=== PATIENT | male | born 1985 | race Caucasian/White ===

== ENCOUNTER 2017-07-08 14:08 | Emergency (ER) | payer OTHER ==
--- NOTE | 2017-07-08 14:16 | ED ---
Male Urogenital HPI - General Chief complaint: Urogenital Stated complaint: abdominal pain/digestion problems Time Seen by Provider: 07/08/17 14:15 Source: patient Mode of arrival: ambulatory Limitations: no limitations - History of Present Illness Initial comments: Patient presents with abdominal pain that occurs only after eating, after eating any type of food, for the past 3 weeks. Patient states it feels like a tightness and acid reflux. Patient states "I notes acid reflux it goes up into the back of my throat". Patient denies any past medical history, any history of stomach ulcers her acid reflux, denies history of abdominal surgeries, denies history of intra-abdominal disease. Patient has not tried any treatments at home. Patient states yesterday he experienced a white discharge in his urine once, however today his urination was normal. Patient does state he had bilateral flank pain last night, which has since resolved. Patient states he is sexually active, however has not had sex in the past 2 months. Patient denies any penile discharge at this time. Patient states last bowel movement was this morning, it was normal. Patient denies nausea or vomiting, fevers, chills. Patient denies any lesions or rashes in his genital area. - Related Data Home Medications Medication Instructions Recorded Confirmed Calcium Carbonate [Tums Ultra 1,177 mg PO Q4H PRN 07/08/17 07/08/17 Strength] Allergies Allergy/AdvReac Type Severity Reaction Status Date / Time No Known Allergies Allergy Verified 07/08/17 14:18 Review of Systems ROS Statement: Those systems with pertinent positive or pertinent negative responses have been documented in the HPI. ROS Other: All systems not noted in ROS Statement are negative. Constitutional: Denies: fever, chills, weakness Eyes: Denies: vision change ENT: Denies: throat pain, congestion Respiratory: Denies: cough Cardiovascular: Denies: chest pain Endocrine: Reports: polyuria. Denies: fatigue Gastrointestinal: Reports: abdominal pain. Denies: nausea, vomiting, diarrhea, constipation, hematemesis, melena, hematochezia Genitourinary: Reports: frequency. Denies: dysuria, hematuria, testicular pain , testicular mass Musculoskeletal: Reports: other (bilat flank pain last night). Denies: joint swelling, arthralgia, myalgia Skin: Denies: rash, change in color Neurological: Denies: headache Past Medical History Past Medical History: No Reported History History of Any Multi-Drug Resistant Organisms: None Reported Past Surgical History: No Surgical Hx Reported Past Psychological History: No Psychological Hx Reported Smoking Status: Current every day smoker Past Alcohol Use History: Occasional Past Drug Use History: Marijuana General Exam - General Exam Comments Initial Comments: Sitting up on side of bed. No acute distress. Well-appearing. Conversing normally. Limitations: no limitations General appearance: alert, in no apparent distress Head exam: Present: atraumatic, normocephalic Eye exam: Present: normal appearance, PERRL, EOMI. Absent: scleral icterus, conjunctival injection ENT exam: Present: normal oropharynx, mucous membranes moist Neck exam: Present: normal inspection Respiratory exam: Present: normal lung sounds bilaterally. Absent: respiratory distress, wheezes, rales, rhonchi, stridor Cardiovascular Exam: Present: regular rate, normal rhythm GI/Abdominal exam: Present: soft, normal bowel sounds. Absent: distended, tenderness, guarding, rebound, rigid, hernia exam: Present: normal inspection, circumcision. Absent: testicular tenderness, urethral discharge, scrotal swelling External exam: Present: normal external exam. Absent: erythema, swelling, lesions, lacerations, ecchymosis Extremities exam: Present: normal inspection Back exam: Present: CVA tenderness (R), CVA tenderness (L) (Mild CVA tenderness bilaterally) Neurological exam: Present: alert, oriented X3 Psychiatric exam: Present: normal affect, normal mood Skin exam: Present: warm, dry, intact, normal color. Absent: rash, cyanosis, diaphoretic, erythema Course Vital Signs 07/08/17 07/08/17 07/08/17 14:10 16:35 17:00 Temperature 97.8 F 98.1 F 97.0 F L Pulse Rate 103 H 59 L 89 Respiratory 20 19 20 Rate Blood Pressure 131/83 118/59 139/81 O2 Sat by Pulse 100 100 96 Oximetry Medical Decision Making - Medical Decision Making Zofran, Pepcid, GI cocktail ordered Lab work shows elevation of alk phos and ALT. UA shows hematuria. Will obtain ultrasound of kidneys and liver given lab findings. Patient reevaluated, updated with elevated LFTs, hematuria, need for US of GB, liver, kidneys. Patient is in room drinking wheeler soda, patient instructed not to drink wheeler soda as this could irritate any stomach gastritis or ulcers or other etiologies of his pain. Patient also informed that he needs to be nothing by mouth while in ED incase of need for procedure. Notified by RN the pt eloped while a/w US. Patient made no indication to physician staff about his intent to leave prior to doing so. Patient was informed of his abnormal lab results and need for further testing earlier in his visit. - Lab Data Result diagrams: 07/08/17 14:45 07/08/17 14:45 Lab Results 07/08/17 07/08/17 07/08/17 Range/Units 14:45 14:45 14:45 WBC 8.9 (3.8-10.6) k/uL RBC 5.30 (4.30-5.90) m/uL Hgb 15.4 (13.0-17.5) gm/dL Hct 44.1 (39.0-53.0) % MCV 83.3 (80.0-100.0) fL MCH 29.0 (25.0-35.0) pg MCHC 34.9 (31.0-37.0) g/dL RDW 12.9 (11.5-15.5) % Plt Count 239 (150-450) k/uL Neutrophils % 80 % Lymphocytes % 14 % Monocytes % 3 % Eosinophils % 1 % Basophils % 0 % Neutrophils # 7.2 (1.3-7.7) k/uL Lymphocytes # 1.3 (1.0-4.8) k/uL Monocytes # 0.3 (0-1.0) k/uL Eosinophils # 0.1 (0-0.7) k/uL Basophils # 0.0 (0-0.2) k/uL Sodium 145 (137-145) mmol/L Potassium 4.6 (3.5-5.1) mmol/L Chloride 106 (98-107) mmol/L Carbon Dioxide 25 (22-30) mmol/L Anion Gap 14 mmol/L BUN 13 (9-20) mg/dL Creatinine 0.85 (0.66-1.25) mg/dL Est GFR (CKD-EPI)AfAm >90 (>60 ml/min/1.73 sqM) Est GFR (CKD-EPI)NonAf >90 (>60 ml/min/1.73 sqM) Glucose 151 H (74-99) mg/dL Calcium 10.1 (8.4-10.2) mg/dL Total Bilirubin 0.7 (0.2-1.3) mg/dL Conjugated Bilirubin 0.0 (0.0-0.3) mg/dL Unconjugated Bilirubin 0.3 (0.0-1.1) mg/dL Delta Bilirubin 0.4 H (0.0-0.2) mg/dL AST 55 (17-59) U/L ALT 242 H (21-72) U/L Alkaline Phosphatase 182 H (38-126) U/L Total Protein 8.3 H (6.3-8.2) g/dL Albumin 4.5 (3.5-5.0) g/dL Lipase 101 (23-300) U/L Urine Color Yellow Urine Appearance Clear (Clear) Urine pH 8.0 (5.0-8.0) Ur Specific [place] 1.018 (1.001-1.035) Urine Protein Trace H (Negative) Urine Glucose (UA) Negative (Negative) Urine Ketones Negative (Negative) Urine Blood Moderate H (Negative) Urine Nitrite Negative (Negative) Urine Bilirubin Negative (Negative) Urine Urobilinogen 6.0 (<2.0) mg/dL Ur Leukocyte Esterase Negative (Negative) Urine RBC >182 H (0-5) /hpf Urine WBC 2 (0-5) /hpf Urine Mucus Rare H (None) /hpf Disposition Clinical Impression: Elevated LFTs, Hematuria, Abdominal pain Disposition: Left Against Medical Advice Condition: Good Referrals: Herminio Nelson MD [Primary Care Provider] - 1-2 days
[2017-07-08] MEDS ORDERED: MAG HYDROX/AL HYDROX/SIMETH 30 ML, HYOSCYAMINE ELIXIR 10 ML, CIMETIDINE HCL 300 MG, LID... PO STA ×4 (14:33)
[2017-07-08] MEDS ORDERED: FAMOTIDINE 20 MG/2 ML VIAL IV STA (14:33)
[2017-07-08] MEDS ORDERED: ONDANSETRON 4 MG/2 ML VIAL IVP STA (14:33)
[2017-07-08] MEDS ORDERED: SODIUM CHLORIDE 0.9% 1,000 ML IV STA (14:33)
[2017-07-08 15:02] LABS: Basophils % (A) 0 %; Eosinophils # (A) 0.1 k/uL (0-0.7); Eosinophils % (A) 1 %; HCT 44.1 % (39.0-53.0); HGB 15.4 gm/dL (13.0-17.5); Lymphocytes # (A) 1.3 k/uL (1.0-4.8); Lymphocytes % (A) 14 %; MCHC 34.9 g/dL (31.0-37.0); MCV 83.3 fL (80.0-100.0); Mean Platelet Volume 7.7; Monocytes # (A) 0.3 k/uL (0-1.0); Monocytes % (A) 3 %; Neutrophils # (A) 7.2 k/uL (1.3-7.7); Neutrophils % (A) 80 %; Platelet Count 239 k/uL (150-450); RDW 12.9 % (11.5-15.5); WBC 8.9 k/uL (3.8-10.6)
[2017-07-08 15:12] LABS: ALT 242 U/L (21-72); AST 55 U/L (17-59); Albumin 4.5 g/dL (3.5-5.0); Alkaline Phosphatase 182 U/L (38-126); Anion Gap 14 mmol/L; Bilirubin, Delta 0.4 mg/dL (0.0-0.2); Bilirubin,Unconjugated 0.3 mg/dL (0.0-1.1); Blood Urea Nitrogen 13 mg/dL (9-20); Calcium 10.1 mg/dL (8.4-10.2); Carbon Dioxide 25 mmol/L (22-30); Chloride 106 mmol/L (98-107); Glucose 151 mg/dL (74-99); Lipase 101 U/L (23-300); Potassium 4.6 mmol/L (3.5-5.1); Sodium 145 mmol/L (137-145); Total Bilirubin 0.7 mg/dL (0.2-1.3); Total Protein 8.3 g/dL (6.3-8.2)
[2017-07-08 15:15] LABS: Appearance,Urine Clear (Clear); Bilirubin,Urine Negative (Negative); Blood,Urine Moderate (Negative); Color,Urine Yellow; Glucose,Urine (UA) Negative (Negative); Ketones,Urine Negative (Negative); Leukocyte Esterase,Urine Negative (Negative); Mucus,Urine Rare /hpf; Nitrite,Urine Negative (Negative); Protein,Urine Trace (Negative); RBC,Urine >182 /hpf (0-5); Specific Gravity,Urine 1.018 (1.001-1.035); WBC,Urine 2 /hpf (0-5)
[2017-07-08 18:17] VITALS: BP 139/81; PULSE 89; RESP 20; TEMP 97
[2017-07-10 16:03] LABS: C. trachomatis,PCR Negative (Neg,Equiv); Chlamydia trachomatis Source Urine; N. gonorrhoeae,PCR Negative (Neg,Equiv); Neisseria Source Urine
== END 2017-07-08 18:19 | disposition left against medical advice (07) ==
LOC: EC 14:08
DX: R94.5 Abnormal results of liver function studies (principal); R10.9 Unspecified abdominal pain; R31.9 Hematuria, unspecified; F17.200 Nicotine dependence, unspecified, uncomplicated
CPT/HCPCS: 99283; 96374; 96375; 36415; 80048; 80076; 83690; 85025; 81001; 87491; 87591; 87086; J2405

== ENCOUNTER 2020-01-27 11:23 | Emergency (ER) | payer OTHER ==
[2020-01-27] MEDS ORDERED: predniSONE 50 MG TAB PO STA (11:57)
[2020-01-27] MEDS ORDERED: diphenhydrAMINE 50 MG CAP PO STA (11:58)
--- NOTE | 2020-01-27 11:58 | ED ---
Skin/Abscess/FB HPI - General Chief complaint: Skin/Abscess/Foreign Body Stated complaint: Rash Time Seen by Provider: 01/27/20 11:32 Source: patient Mode of arrival: ambulatory Limitations: no limitations - History of Present Illness Initial comments: Patient is a 34-year-old male presenting to the emergency department with a chief complaint of a rash. Patient states rash started yesterday initial in his forehead, has now spread to his neck and but a bit on his bilateral upper extremity is. States the rash is itchy but not painful. He denies any night sweats or chills. Denies taking medication to alleviate the symptoms. Denies any discharge from the region. States he is a IV drug user. Denies any neck stiffness, pain, chest pain or shortness of breath. Denies any discoloration of the nails or nail lesions on the hand. - Related Data Home Medications Medication Instructions Recorded Confirmed Calcium Carbonate [Tums Ultra 1,177 mg PO Q4H PRN 07/08/17 07/08/17 Strength] Previous Rx's Medication Instructions Recorded predniSONE 50 mg PO DAILY #5 tab 01/27/20 Allergies Allergy/AdvReac Type Severity Reaction Status Date / Time No Known Allergies Allergy Verified 01/27/20 11:28 Review of Systems ROS Statement: Those systems with pertinent positive or pertinent negative responses have been documented in the HPI. ROS Other: All systems not noted in ROS Statement are negative. Past Medical History Past Medical History: No Reported History History of Any Multi-Drug Resistant Organisms: None Reported Past Surgical History: No Surgical Hx Reported Past Psychological History: No Psychological Hx Reported Smoking Status: Current every day smoker Past Alcohol Use History: Occasional Past Drug Use History: Heroin, Marijuana General Exam Limitations: no limitations General appearance: alert, in no apparent distress Head exam: Present: atraumatic, normocephalic, normal inspection Eye exam: Present: normal appearance, PERRL, EOMI Pupils: Present: normal accommodation ENT exam: Present: normal exam, normal oropharynx, mucous membranes moist, TM's normal bilaterally, normal external ear exam Neck exam: Present: normal inspection, full ROM. Absent: tenderness, mening ismus, lymphadenopathy Respiratory exam: Present: normal lung sounds bilaterally. Absent: respiratory distress, wheezes, rales Cardiovascular Exam: Present: regular rate, normal rhythm, normal heart sounds. Absent: bradycardia, tachycardia, irregular rhythm, systolic murmur, diastolic murmur GI/Abdominal exam: Present: soft. Absent: distended, tenderness, guarding, rebound Extremities exam: Present: normal inspection, full ROM, normal capillary refill (No signs of splinter hemorrhages.), other (+2 ulnar and radial pulses bilateral.). Absent: tenderness Back exam: Present: normal inspection, full ROM. Absent: tenderness, CVA tenderness (R), CVA tenderness (L) Neurological exam: Present: alert, oriented X3, CN II-XII intact, normal gait Psychiatric exam: Present: normal affect, normal mood Skin exam: Present: warm, dry, intact, normal color, rash (Maculopapular rash on the neck, forehead and slight on bilateral upper or tremors.) Course Vital Signs 01/27/20 11:24 Temperature 98.3 F Pulse Rate 114 H Respiratory 16 Rate Blood Pressure 158/92 O2 Sat by Pulse 97 Oximetry Medical Decision Making - Medical Decision Making Patient is a 34-year-old male presenting to emergency Department with a chief complaint of a rash. This appears to be a maculopapular rash on the face, neck and bilateral upper extremities. His vitals are stable. He is afebrile. He is an IV drug user. There are not any splinter hemorrhages or other lesions on the hand. Patient started on Benadryl and prednisone. On reevaluation there appears to be improvement in the rash. I suspect this is a viral exanthem. He will be discharged with a course of steroids. Strict return parameters were thoroughly discussed the patient was understanding and agreeable. Case discussed with physician. Disposition Clinical Impression: Rash and nonspecific skin eruption Disposition: HOME SELF-CARE Condition: Stable Instructions (If sedation given, give patient instructions): Viral Exanthem (ED) Additional Instructions: Take prescribed medication as directed. Take Benadryl for the itching. Return to emergency department if symptoms worsen. Follow-up with primary care physician. Prescriptions: predniSONE 50 mg PO DAILY #5 tab Is patient prescribed a controlled substance at d/c from ED?: No Referrals: None,Stated [Primary Care Provider] - 1-2 days Time of Disposition: 12:42
[2020-01-27 12:51] VITALS: BP 150/84; PULSE 82; RESP 20; TEMP 98.1
== END 2020-01-27 12:52 | disposition home or self-care (01) ==
LOC: EC 11:23
DX: R21 Rash and other nonspecific skin eruption (principal); F17.200 Nicotine dependence, unspecified, uncomplicated
CPT/HCPCS: 99282; J7512

== ENCOUNTER 2021-10-25 08:39 | Emergency (ER) | payer OTHER ==
[2021-10-25 08:44] VITALS: BP 131/48; PULSE 92; RESP 18; TEMP 98.4
[2021-10-25] MEDS ORDERED: ONDANSETRON 4 MG/2 ML VIAL IVP STA (10:08)
[2021-10-25] MEDS ORDERED: KETOROLAC 15 MG/ML 1 ML VIAL IVP STA (10:08)
[2021-10-25] MEDS ORDERED: SODIUM CHLORIDE 0.9% 1,000 ML IV STA (10:08)
--- NOTE | 2021-10-25 10:43 | ED ---
Extremity Problem HPI - General Chief complaint: Extremity Injury, Lower Stated complaint: left foot pain, swelling Time Seen by Provider: 10/25/21 10:01 Source: patient, family, RN notes reviewed Mode of arrival: ambulatory Limitations: no limitations - History of Present Illness Initial comments: This is a 36-year-old male who presents to the emergency department with left foot pain and swelling. Patient states that 3 days ago he was helping set up for a picnic and the day after that he was on his feet a lot at work. He does not recall dropping anything on his foot or otherwise injuring himself, however he states that he can't be sure. He is a previous IVDU and states that he poked himself with a needle in the area of pain and redness 1-2 days before the symptoms began, however he did not inject himself with any substances. The pain and swelling occurred 2 days ago and has continued to progress. He has been elevating and icing the foot with no relief. This morning he noticed that the foot was very red. He is now unable to ambulate due to the pain. This morning he also became nauseous and started vomiting. Denies any fevers, chills, sore throat, cough, dyspnea, chest pain, palpitations, abdominal pain, diarrhea, back pain, or headaches. MD Complaint: extremity pain, extremity swelling Onset/Timin -: days(s) Location: left, lower extremity (foot) History of Same: No Consistency: constant Worsens with: weight bearing, walking Associated Symptoms: denies other symptoms - Related Data Home Medications Medication Instructions Recorded Confirmed Buprenorphine HCl/Naloxone HCl 1 film SL TID PRN 10/25/21 10/25/21 [Buprenorp-Nalox 8-2 mg Sl Film] Previous Rx's Medication Instructions Recorded Cephalexin [Keflex] 500 mg PO Q8HR 10 Days #30 cap 10/25/21 Diclofenac Sodium [Voltaren] 75 mg PO BID #20 tab 10/25/21 Ondansetron Odt [Zofran Odt] 4 mg PO Q8HR PRN #15 tab 10/25/21 Sulfamethox-Tmp 800-160Mg [Bactrim 1 each PO Q12HR 10 Days #20 tab 10/25/21 Ds] Allergies Allergy/AdvReac Type Severity Reaction Status Date / Time No Known Allergies Allergy Verified 10/25/21 10:58 Review of Systems ROS Statement: Those systems with pertinent positive or pertinent negative responses have been documented in the HPI. ROS Other: All systems not noted in ROS Statement are negative. Past Medical History Past Medical History: No Reported History History of Any Multi-Drug Resistant Organisms: None Reported Past Surgical History: No Surgical Hx Reported Past Psychological History: No Psychological Hx Reported Smoking Status: Former smoker Past Alcohol Use History: None Reported Past Drug Use History: None Reported General Exam Limitations: no limitations General appearance: alert, in no apparent distress Head exam: Present: atraumatic, normocephalic, normal inspection Respiratory exam: Present: normal lung sounds bilaterally. Absent: respiratory distress, wheezes, rales, rhonchi, stridor Cardiovascular Exam: Present: regular rate, normal rhythm, normal heart sounds. Absent: systolic murmur, diastolic murmur, rubs, gallop, clicks Extremities exam: Present: other (Swelling and erythema to the dorsal aspect of the left foot with increased heat and tenderness to palpation. No obvious abrasions or lacerations. 2+ dorsalis pedis and tibialis posterior pulses bilaterally. Capillary refill less than 1 second.) Neurological exam: Present: alert, oriented X3, CN II-XII intact Psychiatric exam: Present: normal affect, normal mood Course Vital Signs 10/25/21 08:40 Temperature 98.4 F Pulse Rate 92 Respiratory 18 Rate Blood Pressure 131/48 O2 Sat by Pulse 100 Oximetry Medical Decision Making - Medical Decision Making This is a 36-year-old male who presents to the emergency department for left foot pain and erythema. The patient initially stated that he was not using any intravenous drugs, however after further discussion, he did finally admit that he stuck his foot with a needle where he subsequently developed the pain and redness, however he did not inject any substances into the foot. He did not want to provide this information initially, as he was worried that he would be treated differently or not taken seriously. I reiterated with the patient the importance of being honest, as that impacts his treatment plan and diagnosis. I also assured him that I would not treat him any differently Given that history and his symptoms, the concern is primarily related to infection. Strongly advised the patient be admitted for IV antibiotics, however he declined despite my strongest recommendations, stating that he wishes to try outpatient management at home first. 1g of cefoxitin IM was administered in the emergency department. Given the patient's IVDU, no IV was able to be established for initial IV antibiotics. Prescription for Bactrim and Keflex sent to the pharmacy. He was also given a prescription for diclofenac to treat the pain and inflammation as well as Zofran for any additional nausea. Crutches provided as well, as the patient is unable to ambulate due to the pain. He was given very strict return parameters, in that if the redness and pain continue to progress, he does need to return immediately for IV antibiotics. He was warned of the ris k for permanent bone and muscle damage, which could eventually lead to amputation. Patient expresses understanding. Return precautions reviewed in depth, the patient is instructed to return to the emergency department with any new, worsening, or concerning symptoms. Patient verbalized understanding. This case was discussed in detail with the attending ED physician. Presentation, findings, and treatment plan discussed in detail as well. - Lab Data Result diagrams: 10/25/21 10:47 10/25/21 10:47 Lab Results 10/25/21 10/25/21 Range/Units 10:47 10:47 WBC 6.3 (3.8-10.6) k/uL RBC 3.94 L (4.30-5.90) m/uL Hgb 11.6 L (13.0-17.5) gm/dL Hct 33.5 L (39.0-53.0) % MCV 85.1 (80.0-100.0) fL MCH 29.3 (25.0-35.0) pg MCHC 34.5 (31.0-37.0) g/dL RDW 12.2 (11.5-15.5) % Plt Count 102 L (150-450) k/uL MPV 9.5 Neutrophils % 86 % Lymphocytes % 4 % Monocytes % 8 % Eosinophils % 1 % Basophils % 0 % Neutrophils # 5.3 (1.3-7.7) k/uL Lymphocytes # 0.3 L (1.0-4.8) k/uL Monocytes # 0.5 (0-1.0) k/uL Eosinophils # 0.0 (0-0.7) k/uL Basophils # 0.0 (0-0.2) k/uL Sodium 137 (137-145) mmol/L Potassium 4.4 (3.5-5.1) mmol/L Chloride 106 (98-107) mmol/L Carbon Dioxide 21 L (22-30) mmol/L Anion Gap 10 mmol/L BUN 8 L (9-20) mg/dL Creatinine 0.82 (0.66-1.25) mg/dL Est GFR (CKD-EPI)AfAm >90 (>60 ml/min/1.73 sqM) Est GFR (CKD-EPI)NonAf >90 (>60 ml/min/1.73 sqM) Glucose 113 H (74-99) mg/dL Uric Acid 4.9 (3.5-8.5) mg/dL Calcium 8.7 (8.4-10.2) mg/dL Total Bilirubin 0.7 (0.2-1.3) mg/dL AST 54 (17-59) U/L ALT 41 (4-49) U/L Alkaline Phosphatase 110 (38-126) U/L C-Reactive Protein 6.7 H (<1.0) mg/dL Total Protein 7.7 (6.3-8.2) g/dL Albumin 4.3 (3.5-5.0) g/dL - Radiology Data Radiology results: report reviewed, image reviewed Disposition Clinical Impression: Cellulitis of foot, left Disposition: HOME SELF-CARE Instructions (If sedation given, give patient instructions): Cellulitis (ED) Additional Instructions: Return to the emergency department with any new, worsening, or concerning symptoms. Take the antibiotics as prescribed for 10 days. Take the diclofenac twice daily as needed for pain. Use Zofran as needed for nausea and vomiting. Follow up with your primary care provider in 1-2 days. Prescriptions: Sulfamethox-Tmp 800-160Mg [Bactrim Ds] 1 each PO Q12HR 10 Days #20 tab Cephalexin [Keflex] 500 mg PO Q8HR 10 Days #30 cap Diclofenac Sodium [Voltaren] 75 mg PO BID #20 tab Ondansetron Odt [Zofran Odt] 4 mg PO Q8HR PRN #15 tab PRN Reason: Nausea And Vomiting Is patient prescribed a controlled substance at d/c from ED?: No Referrals: None,Stated [Primary Care Provider] - 1-2 days
--- NOTE | 2021-10-25 10:46 | XR ---
EXAMINATION TYPE: XR foot complete 3 views LT DATE OF EXAM: 10/25/2021 Comparison: None Clinical History: 36-year-old male Swelling and erythema Findings: Shaw's toe. Bipartite tibial sesamoid. Mild bunion formation suggested. Pronounced dorsal soft tiss ue swelling. No acute fracture, subluxation, or dislocation seen. Impression: Pronounced dorsal soft tissue swelling. No acute osseous abnormality seen.
[2021-10-25 11:08] LABS: Basophils % (A) 0 %; Eosinophils % (A) 1 %; HCT 33.5 % (39.0-53.0); HGB 11.6 gm/dL (13.0-17.5); Lymphocytes # (A) 0.3 k/uL (1.0-4.8); Lymphocytes % (A) 4 %; MCH 29.3 pg (25.0-35.0); MCHC 34.5 g/dL (31.0-37.0); MCV 85.1 fL (80.0-100.0); Mean Platelet Volume 9.5; Monocytes # (A) 0.5 k/uL (0-1.0); Monocytes % (A) 8 %; Neutrophils # (A) 5.3 k/uL (1.3-7.7); Neutrophils % (A) 86 %; Platelet Count 102 k/uL (150-450); RBC 3.94 m/uL (4.30-5.90); RDW 12.2 % (11.5-15.5); WBC 6.3 k/uL (3.8-10.6)
[2021-10-25] MEDS ORDERED: KETOROLAC 15 MG/ML 1 ML VIAL IM STA (11:12)
[2021-10-25] MEDS ORDERED: ONDANSETRON ODT 4 MG TAB PO STA (11:12)
--- NOTE | 2021-10-25 11:19 | US ---
EXAMINATION TYPE: US venous doppler duplex LE LT DATE OF EXAM: 10/25/2021 11:10 AM COMPARISON: NONE CLINICAL HISTORY: 36-year-old male Left foot swelling and erythema. Left ankle and foot pain and swel ling SIDE PERFORMED: Left TECHNIQUE: The lower extremity deep venous system is examined utilizing real time linear array sonog raiza with graded compression, doppler sonography and color-flow sonography. FINDINGS: VESSELS IMAGED: Common Femoral Vein Deep Femoral Vein Greater Saphenous Vein * Femoral Vein Popliteal Vein Small Saphenous Vein * Proximal Calf Veins (* superficial vessels) Left Leg: Appears negative for DVT IMPRESSION: No evidence for DVT within the left lower extremity imaged from the groin to the upper calf.
[2021-10-25 11:29] LABS: ALT 41 U/L (4-49); African American GFR (CKD) >90 (>60 ml/min/1.73 sqM); Anion Gap 10 mmol/L; Blood Urea Nitrogen 8 mg/dL (9-20); C Reactive Protein 6.7 mg/dL (<1.0); Calcium 8.7 mg/dL (8.4-10.2); Carbon Dioxide 21 mmol/L (22-30); Chloride 106 mmol/L (98-107); Glucose 113 mg/dL (74-99); Non-African American GFR(CKD) >90 (>60 ml/min/1.73 sqM); Sodium 137 mmol/L (137-145); Total Bilirubin 0.7 mg/dL (0.2-1.3); Uric Acid 4.9 mg/dL (3.5-8.5)
[2021-10-25 11:32] LABS: Albumin 4.3 g/dL (3.5-5.0); Potassium 4.4 mmol/L (3.5-5.1); Total Protein 7.7 g/dL (6.3-8.2)
[2021-10-25 11:33] LABS: AST 54 U/L (17-59); Alkaline Phosphatase 110 U/L (38-126)
== END 2021-10-25 13:04 | disposition home or self-care (01) ==
LOC: EC 08:39
DX: L03.116 Cellulitis of left lower limb (principal); Z87.891 Personal history of nicotine dependence
CPT/HCPCS: 36415; 80053; 84550; 85025; 86140; 73630; 93971; 99284; 96372; J0694; J1885

== ENCOUNTER 2021-10-29 18:33 | Emergency (ER) | payer OTHER ==
[2021-10-29 18:43] VITALS: TEMP 97.7
[2021-10-29] MEDS ORDERED: RX INFO: IV CONTRAST WAS GIVEN 1 EACH MISC MISCELLANE PRN (19:55)
--- NOTE | 2021-10-29 20:21 | ED ---
General Adult HPI - General Chief complaint: Neuro Symptoms/Deficit Stated complaint: lt sided facial droop Time Seen by Provider: 10/29/21 19:36 Source: patient Mode of arrival: ambulatory Limitations: no limitations - History of Present Illness Initial comments: 36 year-old male patient with history of and current IVDA presents to the emergency department today for evaluation of left sided facial numbness with left sided facial droop. Patient states symptoms were present when he woke at 9am. States that he went to bed without symptoms. He states symptoms have been constant all day. He is unable to close his left eye. Denies any headache, dizziness, blurred vision, or double vision. Denies any numbness, tingling, or weakness to the arms or legs. States he has been having some neck discomfort for a couple of weeks. He is currently being treated for cellulitis to the left dorsal foot after injecting. He is taking keflex, bactrim, and diclofenac for pain. He states he has been feeling unwell and having difficulty eating. Had a couple episodes of vomiting. He has also had upper respiratory symptoms including nasal congestion, drainage, and cough. Patient denies any recent rash, shortness of breath, chest pain, abdominal pain, diarrhea, constipation, back pain, weakness, hematuria, dysuria, urinary urgency, urinary frequency, or any other complaints. - Related Data Home Medications Medication Instructions Recorded Confirmed Buprenorphine HCl/Naloxone HCl 1 film SL TID PRN 10/25/21 10/29/21 [Buprenorp-Nalox 8-2 mg Sl Film] Cephalexin [Keflex] 500 mg PO Q8H 10/29/21 10/29/21 Ondansetron Odt [Zofran Odt] 4 mg PO Q8H PRN 10/29/21 10/29/21 Sulfamethox-Tmp 800-160Mg [Bactrim 1 tab PO Q12H 10/29/21 10/29/21 Ds] Previous Rx's Medication Instructions Recorded Diclofenac Sodium [Voltaren] 75 mg PO BID #20 tab 10/25/21 predniSONE [Deltasone] 60 mg PO DAILY #18 tab 10/29/21 Allergies Allergy/AdvReac Type Severity Reaction Status Date / Time No Known Allergies Allergy Verified 10/29/21 20:34 Review of Systems ROS Statement: Those systems with pertinent positive or pertinent negative responses have been documented in the HPI. ROS Other: All systems not noted in ROS Statement are negative. Past Medical History Past Medical History: No Reported History History of Any Multi-Drug Resistant Organisms: None Reported Past Surgical History: No Surgical Hx Reported Past Psychological History: No Psychological Hx Reported Smoking Status: Former smoker Past Alcohol Use History: None Reported Past Drug Use History: None Reported General Exam Limitations: no limitations General appearance: alert, in no apparent distress, other (This is a well- developed, well-nourished adult male in no acute distress.) Eye exam: Present: normal appearance, PERRL, EOMI, other (Inability to close the left eyelid). Absent: scleral icterus, conjunctival injection, nystagmus, periorbital swelling ENT exam: Present: normal exam, normal oropharynx, mucous membranes moist Neck exam: Present: normal inspection, full ROM. Absent: tenderness, meningismus, lymphadenopathy Respiratory exam: Present: normal lung sounds bilaterally. Absent: respiratory distress, wheezes, rales, rhonchi, stridor Cardiovascular Exam: Present: normal rhythm, bradycardia, normal heart sounds. Absent: systolic murmur, diastolic murmur, rubs, gallop, clicks GI/Abdominal exam: Present: soft, normal bowel sounds. Absent: distended, tenderness, guarding, rebound, rigid Extremities exam: Present: full ROM, normal capillary refill, other (There is soft tissue swelling and erythema noted over the left dorsal foot, pedal pulse 2+.). Absent: normal inspection, tenderness, pedal edema, joint swelling, calf tenderness Neurological exam: Present: alert, oriented X3, CN II-XII intact Expanded Speech: Present: fluid speech Cranial nerves: EOM's Intact: Normal, Tongue Deviation: Normal, Nystagmus: Normal, Facial Sensation: Abnormal Left, Facial Palsy without Forehead Movement: Abnormal Left (Partial paralysis of forehead) Cerebellar function: Finger to Nose: Normal Upper motor neuron: Pronator Drift: Normal Motor strength exam: RUE: 5, LUE: 5, RLE: 5, LLE: 5 Eye Response: (4) open spontaneously Motor Response: (6) obeys commands Verbal Response: (5) oriented Angeline Total: 15 Psychiatric exam: Present: normal affect, normal mood Skin exam: Present: warm, dry, intact, normal color. Absent: rash Course Vital Signs 10/29/21 10/29/21 18:39 21:23 Temperature 97.7 F Pulse Rate 52 L 78 Respiratory 15 16 Rate Blood Pressure 105/53 108/64 O2 Sat by Pulse 100 98 Oximetry Medical Decision Making - Medical Decision Making 36-year-old male patient with history of IV drug use presents for evaluation of left-sided facial numbness and drooping. Symptoms are present when he woke this morning. He is currently being treated for cellulitis of the left foot. Physical examination did reveal left-sided facial droop, inability to close the left eye, partial left forehead involvement. He is otherwise neurologically intact with no other focal deficits. Labs reviewed and did reveal low white blood cell count at 3.2, hemoglobin 12.3, glucose 154. CT brain was negative. 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 We will start steroids 60 mg daily for 7 days. He is instructed to continue his antibiotics for cellulitis. He is instructed to follow-up with his primary care physician for recheck this week. Return parameters were discussed in detail. He verbalizes understanding and agrees with this plan. My attending is Dr. Hurt. - Lab Data Result diagrams: 10/29/21 20:11 10/29/21 20:11 Lab Results 10/29/21 10/29/21 10/29/21 Range/Units 20:11 20:11 20:11 WBC 3.2 L (3.8-10.6) k/uL RBC 4.35 (4.30-5.90) m/uL Hgb 12.3 L (13.0-17.5) gm/dL Hct 37.6 L (39.0-53.0) % MCV 86.4 (80.0-100.0) fL MCH 28.4 (25.0-35.0) pg MCHC 32.8 (31.0-37.0) g/dL RDW 12.4 (11.5-15.5) % Plt Count 180 D (150-450) k/uL MPV 8.8 Neutrophils % 46 % Lymphocytes % 48 % Monocytes % 4 % Eosinophils % 0 % Basophils % 0 % Neutrophils # 1.5 (1.3-7.7) k/uL Lymphocytes # 1.5 (1.0-4.8) k/uL Monocytes # 0.1 (0-1.0) k/uL Eosinophils # 0.0 (0-0.7) k/uL Basophils # 0.0 (0-0.2) k/uL PT 10.7 (9.0-12.0) sec INR 1.0 (<1.2) APTT 31.8 H (22.0-30.0) sec Sodium 140 (137-145) mmol/L Potassium 4.4 (3.5-5.1) mmol/L Chloride 101 (98-107) mmol/L Carbon Dioxide 29 (22-30) mmol/L Anion Gap 10 mmol/L BUN 11 (9-20) mg/dL Creatinine 0.89 (0.66-1.25) mg/dL Est GFR (CKD-EPI)AfAm >90 (>60 ml/min/1.73 sqM) Est GFR (CKD-EPI)NonAf >90 (>60 ml/min/1.73 sqM) Glucose 154 H (74-99) mg/dL Calcium 8.8 (8.4-10.2) mg/dL Total Bilirubin 0.3 (0.2-1.3) mg/dL AST 49 (17-59) U/L ALT 34 (4-49) U/L Alkaline Phosphatase 114 (38-126) U/L Total Protein 7.8 (6.3-8.2) g/dL Albumin 4.4 (3.5-5.0) g/dL - Radiology Data Radiology results: report reviewed, image reviewed CT brain without contrast was obtained. Report was reviewed in its entirety. Impression by Dr. Connolly shows negative unenhanced head computed tomography scan. Disposition Clinical Impression: Left-sided Hoffmann's palsy Disposition: HOME SELF-CARE Condition: Good Instructions (If sedation given, give patient instructions): Hoffmann Palsy (ED) Additional Instructions: Complete steroid prescription in full. Use artificial tear drops once an hour while awake. Use artificial tears ointment before bed, tape eye shut while sleeping. Failure to do this can cause permanent damage to your cornea/eye. Continue the antibiotics for your foot infection. Follow-up with your primary care physician for recheck in 1-2 days. Return to the emergency department immediately for any new, worsening, or concerning symptoms. Prescriptions: predniSONE [Deltasone] 60 mg PO DAILY #18 tab Is patient prescribed a controlled substance at d/c from ED?: No Referrals: Raymon Issa MD [STAFF PHYSICIAN] - 1-2 days Time of Disposition: 21:11
--- NOTE | 2021-10-29 20:34 | CT ---
EXAMINATION TYPE: CT brain wo con DATE OF EXAM: 10/29/2021 COMPARISON: None HISTORY: Left sided facial droop. CT DLP: 1149.4 mGycm Automated exposure control for dose reduction was used. Ventricles have normal size. There is no mass effect or midline shift. No sign of intracranial hemorr dayne. Calvarium is intact. No evidence of cerebral edema. IMPRESSION: Negative unenhanced head CT scan.
[2021-10-29 20:42] LABS: Basophils % (A) 0 %; Eosinophils % (A) 0 %; HCT 37.6 % (39.0-53.0); HGB 12.3 gm/dL (13.0-17.5); Lymphocytes # (A) 1.5 k/uL (1.0-4.8); Lymphocytes % (A) 48 %; MCH 28.4 pg (25.0-35.0); MCHC 32.8 g/dL (31.0-37.0); MCV 86.4 fL (80.0-100.0); Mean Platelet Volume 8.8; Monocytes # (A) 0.1 k/uL (0-1.0); Monocytes % (A) 4 %; Neutrophils # (A) 1.5 k/uL (1.3-7.7); Neutrophils % (A) 46 %; RBC 4.35 m/uL (4.30-5.90); RDW 12.4 % (11.5-15.5); WBC 3.2 k/uL (3.8-10.6)
[2021-10-29 20:46] LABS: Partial Thromboplastin Time 31.8 sec (22.0-30.0); Prothrombin Time 10.7 sec (9.0-12.0)
[2021-10-29 20:48] LABS: ALT 34 U/L (4-49); AST 49 U/L (17-59); African American GFR (CKD) >90 (>60 ml/min/1.73 sqM); Albumin 4.4 g/dL (3.5-5.0); Alkaline Phosphatase 114 U/L (38-126); Anion Gap 10 mmol/L; Blood Urea Nitrogen 11 mg/dL (9-20); Calcium 8.8 mg/dL (8.4-10.2); Carbon Dioxide 29 mmol/L (22-30); Chloride 101 mmol/L (98-107); Glucose 154 mg/dL (74-99); Non-African American GFR(CKD) >90 (>60 ml/min/1.73 sqM); Potassium 4.4 mmol/L (3.5-5.1); Sodium 140 mmol/L (137-145); Total Bilirubin 0.3 mg/dL (0.2-1.3); Total Protein 7.8 g/dL (6.3-8.2)
[2021-10-29 20:54] LABS: Platelet Count 180 k/uL (150-450)
[2021-10-29] MEDS ORDERED: ARTIFICIAL TEARS-HYPROMELLOSE DROPS 15 ML BTL LEFT EYE STA (20:59)
[2021-10-29] MEDS ORDERED: ARTIFICIAL TEARS OINTMENT 3.5 GM TUBE LEFT EYE STA (20:59)
[2021-10-29] MEDS ORDERED: predniSONE 20 MG TAB PO STA (21:08)
[2021-10-29] MEDS ORDERED: ONDANSETRON 4 MG ODT STARTER PACK 2 TAB BTL PO STA (21:09)
[2021-10-29 21:24] VITALS: BP 108/64; PULSE 78; RESP 16
== END 2021-10-29 21:23 | disposition home or self-care (01) ==
LOC: EC 18:33
DX: G51.0 Bell's palsy (principal); Z87.891 Personal history of nicotine dependence
CPT/HCPCS: 36415; 80053; 85025; 85610; 85730; 70450; 99284; S0119; J7512